=== PATIENT | female | born 1950 | race Caucasian/White ===

== ENCOUNTER 2018-03-14 09:37 | Observation (INO) ==
[2018-03-14] MEDS ORDERED: Sodium Chlor 0.9% Inj 500 ML IV.CONT ONE (10:45)
[2018-03-14] MEDS ORDERED: Chlorhexidine Gluconate 2% 1 Pack (2 Cloths) TOPICAL ONE (10:45)
[2018-03-14] MEDS ORDERED: Metoprolol Tartrate 25 MG Tablet PO ONE (10:45)
[2018-03-14] MEDS ORDERED: Vancomycin Inj 1,000 MG in Sodium Chlor 0.9% Inj 250 ML IV.SIG SCH (11:00)
[2018-03-14] MEDS ORDERED: Sod Chloride 0.9% Inj 1,000 ML IV.CONT SCH (11:00)
[2018-03-14] MEDS ORDERED: Ketamine Inj 50 MG/5 ML Syringe IV.PUSH ONE (12:24)
[2018-03-14] MEDS ORDERED: Propofol Inj 500 MG/50 ML Vial ONE (12:24)
[2018-03-14] MEDS ORDERED: Gelatin Size 100 Topical Foam ONE (12:25)
[2018-03-14] MEDS ORDERED: Thrombin Topical Soln 5,000 UNIT Vial TOPICAL ONE (12:25)
[2018-03-14] MEDS ORDERED: Neostigmine Inj 5 MG/5 ML Syringe IV.PUSH ONE (12:54)
[2018-03-14] MEDS ORDERED: Glycopyrrolate Inj 1 MG/5 ML Syringe IV.PUSH ONE (12:54)
[2018-03-14] MEDS ORDERED: Phenylephrine/NS 1000 MCG/10ML Syringe IV.PUSH ONE (12:54)
[2018-03-14] MEDS ORDERED: Lidocaine PF 1% Inj 5 ML Syringe OTHER ONE (12:54)
[2018-03-14] MEDS ORDERED: Bupivacaine/Epinephrine 0.5% Inj 50 ML Vial ONE (12:59)
[2018-03-14] MEDS ORDERED: Dextrose 50% in Water 50 ML Vial IV.PUSH PRN (15:13)
[2018-03-14] MEDS ORDERED: Aluminum/Magnesium/Simethacone Susp 30 ML UDC PO PRN (15:15)
[2018-03-14] MEDS ORDERED: Acetaminophen 325 MG Tablet PO PRN (15:15)
[2018-03-14] MEDS ORDERED: Magnesium Sulfate Inj 2 GM in Sodium Chlor 0.9% Inj 96 ML IV.SIG PRN (15:15)
[2018-03-14] MEDS ORDERED: Bisacodyl 10 MG Supp RECTAL PRN (15:15)
[2018-03-14] MEDS ORDERED: Calcium Gluconate Inj 1 GM in Sodium Chlor 0.9% Inj 100 ML IV.SIG PRN (15:15)
[2018-03-14] MEDS ORDERED: Morphine Inj 4 MG/ML Vial IV.PUSH PRN (15:15)
[2018-03-14] MEDS ORDERED: Menthol 5.8 MG Lozenge BUCCAL PRN (15:15)
[2018-03-14] MEDS ORDERED: Potassium Chlor 20 mEq Premix 20 MEQ/100 ML PIGGYBACK IV.SIG PRN (15:15)
--- NOTE | 2018-03-14 15:28 | P.OP ---
- Preoperative Diagnosis (1) Cervical disc disorder at C5-C6 level with myelopathy (2) Stenosis of cervical spine with myelopathy (3) Spondylolisthesis, cervical region Date of procedure: 03/14/18 Procedure: Anterior cervical C5-6 microdiscectomy with interbody fusion; anterior C5-6 cervical plate placement; C5-6 interbody cage placement; microsurgical technique Anesthesia: CAYLA Surgeon: Andre Hogue MD Roller Repairer: Cristina Faith Estimated blood loss (mL): 25 Operation and Findings: Following administration of general endotracheal anesthesia with the neck maintaining a neutral position in a Hampton collar, the patient received a gram of vancomycin and Decadron 10 mg intravenously. Sequential compression devices were placed in supine position on a Jerad table and all pressure points adequately padded. The head secured in a donut and anterior cervical region then shaved and prepped with Chloraprep and sterilely draped with Ioban along with the usual sterile draping. A transverse skin incision on the left side of the neck was then made after infiltrating the skin with 0.5% Marcaine with epinephrine solution extending down through the platysma. At the anterior border of the sternocleidomastoid further dissection was undertaken developing a plane between the carotid sheath laterally and the trachea esophagus medially. The prevertebral fascia was exposed and dissected out. The medial attachments of the longus colli muscles were detached and a self-retaining retractor used for exposure. The C5-6 disc space was localized with a marking the disc space and using lateral fluoroscopy. [place] distraction screws 14 mm length were placed one in the C5 and one in the C6 body interbody distraction and exposure. There was significant disc degeneration with disc height collapse and anterior osteophytes noted at the C5-6 level and the osteophytes were resected with a Leksell and annulus incised with a 15 blade and further dissection undertaken using microtechnique with microscope magnification. Diskectomy was undertaken with pituitaries and the endplates were also decorticated with curettes and drill bit. And more posteriorly there was disk osteophyte complex compressing the thecal sac along with a significant uncovertebral joint hypertrophy with foraminal stenosis which was decompressed along with removal of the posterior longitudinal ligaments at both levels. The foramen was decompressed bilaterally using a Kerrison's and palpation with a nerve hook, the exiting nerve roots were felt to be free. The area was then copiously irrigated. I then placed a Peek cage packed with local autograft bone at the C5-6 interspace under fluoroscopy guidance. [place] distraction pins were removed and the holes plugged with Gelfoam for hemostasis. In order to facilitate the fusion and provide stabilization, a Precision spine cervical Uniplate was then placed with 14 mm variable angle screw in the C5 body and 14 mm fixed angle screw in the C6 body. The plate screw locking mechanism was then engaged. AP and lateral fluoroscopy confirmed good placement of the construct and the retractor was then removed. Muscular bleeding points were cauterized with bipolar cautery and Gelfoam was then also used for hemostasis which was removed. The platysma was then approximated using 3-0 Vicryl interrupted stitches and 3-0 Vicryl subcuticular stitch also placed in an interrupted fashion, and final skin closure was with Mastisol and Steri-Strips. Sterile dressing was then applied. The patient was then extubated and taken to the recovery room. There are no intraoperative complications and all sponge and needle counts were correct at the end of procedure. Estimated blood loss was about 25 cc. The patient did undergo intraoperative neurologic monitoring which remained stable throughout the surgery.
[2018-03-14] MEDS ORDERED: fentaNYL Citrate Inj 100 MCG/2 ML Ampul ONE (15:40)
[2018-03-14 15:55] LABS: Hematocrit 28.5 % (35.0-46.0); Hemoglobin 9.5 gm/dL (11.6-15.3); Mean Corpuscular HGB Conc 33.4 % (32.0-36.0); Mean Corpuscular Volume 86.8 fL (80.0-100.0); Platelet Count 237 th/mm3 (150-450); Red Blood Count 3.29 mil/mm3 (4.00-5.30); Red Cell Distribution Width 13.1 % (11.6-17.2)
--- NOTE | 2018-03-14 15:58 | XR ---
EXAM DATE: 03/14/2018 12:00 AM EDT AGE/SEX: 68 years / Female INDICATIONS: C5-C6 Fusion. CLINICAL DATA: This is the patient's initial encounter. Patient reports that signs and symptoms have been present for 1 day and indicates a pain score of Nonresponsive. MEDICAL/SURGICAL HISTORY: None. None. COMPARISON: None. FINDINGS: 2 magnified C-arm spot views are lateral projections of the cervical spine. An anterior fusion plate with intervening bone graft device is seen involving C5-C6. Good alignment in this single plane noted . An endotracheal tube and esophageal temperature probe obscures the prevertebral soft tissues. The e sophageal temperature probe coils back in the pharynx with the tip projecting towards the nasopharynx . A metallic wire overlies the occiput. CONCLUSION: Limited images as detailed above. Electronically signed by: Mirza Desir MD 03/14/2018 3:57 PM EDT
[2018-03-14 16:13] LABS: Calcium 8.4 mg/dL (8.5-10.1); Carbon Dioxide 27.8 meq/L (21.0-32.0); Magnesium 1.9 mg/dL (1.5-2.5)
[2018-03-14] MEDS ORDERED: *morphine SULFATE 4 MG/ML PERIprocedure ONLY ONE (17:28)
[2018-03-14] MEDS: Insulin NovoLIN Regular Correctional Sugar Inj SQ SCH ×2 (17:58→20:45)
[2018-03-14] MEDS ORDERED: POTASSIUM GLUCONATE 550 MG PO SCH (21:00)
[2018-03-14 23:48] VITALS: O2SAT 98
[2018-03-15 07:55] LABS: Calcium 8.9 mg/dL (8.5-10.1); Carbon Dioxide 24.1 meq/L (21.0-32.0); Potassium 4.6 meq/L (3.5-5.1)
[2018-03-15] MEDS: Insulin NovoLIN Regular Correctional Sugar Inj SQ SCH (08:23)
[2018-03-15] MEDS ORDERED: Ferrous Sulfate 325 MG Tablet PO SCH (09:00)
[2018-03-15] MEDS ORDERED: Calcium/Vitamin D 250/125 MG Tablet PO SCH (09:00)
[2018-03-15] MEDS ORDERED: hydroCHLOROthiazide 25 MG Tablet PO SCH (09:00)
[2018-03-15] MEDS ORDERED: Multivit/Folic Acid/Minerals Chewable Tablets PO SCH (09:00)
[2018-03-15] MEDS ORDERED: [UNRECOGNIZED DRUG - OTHER] PO SCH (09:00)
[2018-03-15] MEDS ORDERED: Fenofibrate 145 MG Tablet PO SCH (09:00)
[2018-03-15] MEDS ORDERED: Magnesium Oxide 400 MG Tablet PO SCH (09:00)
[2018-03-15] MEDS ORDERED: Docusate Sodium Liq 100 MG/10 ML UDC PO SCH (09:00)
[2018-03-15 09:23] VITALS: BP 160/70; PULSE 92; RESP 20; TEMP 97.6
--- NOTE | 2018-03-15 10:01 | P.PNNS ---
Subjective Interval history: Pt doing well s/p C5/C6 ACF with cervical plate placement on 03/14/18. No radiculopathy in UEs. Paresthesias in hands stable and pt states from her previous degloving injury. She is ambulating to the bathroom independently and request discharge home. <CharlenecesiliaBhavin - Last Filed: 03/15/18 09:55> Physical Exam Vital signs: Vital Signs 03/14/18 10:29 03/14/18 15:29 03/14/18 15:35 Temperature 98.4 F 97.2 F L Pulse Rate 83 82 80 Respiratory Rate 20 15 12 Blood Pressure 142/67 H 174/71 H Pulse Oximetry 100 100 98 03/14/18 15:45 03/14/18 16:00 03/14/18 16:15 Temperature Pulse Rate 78 75 75 Respiratory Rate 10 L 13 13 Blood Pressure 151/69 H 142/62 H 141/67 H Pulse Oximetry 100 100 100 03/14/18 16:30 03/14/18 17:00 03/14/18 17:30 Temperature Pulse Rate 74 75 79 Respiratory Rate 14 16 11 L Blood Pressure 138/62 162/66 H 153/67 H Pulse Oximetry 100 100 100 03/14/18 17:41 03/14/18 18:00 03/14/18 20:00 Temperature 97.6 F 97.7 F Pulse Rate 79 89 Respiratory Rate 15 13 18 Blood Pressure 142/64 H 143/67 H Pulse Oximetry 100 100 03/14/18 23:47 03/15/18 03:38 03/15/18 08:05 Temperature 97.8 F 97.2 F L 97.6 F Pulse Rate 88 95 H 92 H Respiratory Rate 16 18 20 Blood Pressure 119/59 L 147/67 H 160/70 H Pulse Oximetry 98 98 Intake & Output 03/14/18 03/15/18 03/15/18 18:59 06:59 18:59 Intake Total 1850 / 1850 178 / 1780 Output Total 25 / 25 Balance 1825 / 1825 178 / 1780 Weight 63.9 kg 63 kg Intake: IV 1250 / 1250 1300 / 1300 LR 1000 mL Inj 1,000 ML @ 30 1000 / 1000 mls/hr IV.CONT .Q24H ONE Rx#: [id number] NS + KCl 20 mEq Inj 1,000 ML @ 1000 / 1000 0 mls/hr IV.CONT .STK-MED ONE Rx#:[id number] KCl 20 mEq Premix Inj 20 meq In 100 / 100 100 ml @ 50 mls/hr IV.SIG UNSCH PRN Rx#:[id number] Vancomycin Inj 1,000 MG In NS 250 / 250 Inj 250 ML @ 250 mls/hr IV.SIG SENIOR ME[employer] DESIGN ENGINEER DEVEN Rx#:[id number] Ancef Inj 1,000 MG In NS Inj 200 / 200 100 ML @ 200 mls/hr IV.SIG Q8H DEVEN Rx#:[id number] Oral 480 / 480 Anesthesia Amount 600 / 600 Output: Estimated Blood Loss 25 / 25 Other: # Voids 1 Date of Last Bowel Movement 03/13/18 03/14/18 Weight On Admission 58.8 kg - Constitutional no acute distress, cooperative - Routine HEENT Exam Head: Present: atraumatic Eye: Present: PERRL. Absent: scleral injection ENT: Present: oropharynx clear - Routine Neck Exam Present: trachea midline Comments: Anterior cervical incision clean and dry. New bandage placed. - Routine Respiratory Exam Present: CTA bilaterally. Absent: respiratory distress, rhonchi, wheezes - Routine Cardiovascular Exam Present: RRR, S1, S2. Absent: murmur - Routine Abdominal Exam Present: soft, normoactive bowel sounds. Absent: distended - Routine Skin Exam Absent: cyanosis, erythema Comments: New bandage placed. - Routine Neurological Exam Present: alert, moving all extremities, normal speech. Absent: motor deficit ( good strength in UEs.) - Routine Psychiatric Exam Present: normal affect, cooperative. Absent: anxious, agitated <Bhavin Monae - Last Filed: 03/15/18 09:55> Vital signs: Vital Signs 03/14/18 10:29 03/14/18 15:29 03/14/18 15:35 Temperature 98.4 F 97.2 F L Pulse Rate 83 82 80 Respiratory Rate 20 15 12 Blood Pressure 142/67 H 174/71 H Pulse Oximetry 100 100 98 03/14/18 15:45 03/14/18 16:00 03/14/18 16:15 Temperature Pulse Rate 78 75 75 Respiratory Rate 10 L 13 13 Blood Pressure 151/69 H 142/62 H 141/67 H Pulse Oximetry 100 100 100 03/14/18 16:30 03/14/18 17:00 03/14/18 17:30 Temperature Pulse Rate 74 75 79 Respiratory Rate 14 16 11 L Blood Pressure 138/62 162/66 H 153/67 H Pulse Oximetry 100 100 100 03/14/18 17:41 03/14/18 18:00 03/14/18 20:00 Temperature 97.6 F 97.7 F Pulse Rate 79 89 Respiratory Rate 15 13 18 Blood Pressure 142/64 H 143/67 H Pulse Oximetry 100 100 03/14/18 23:47 03/15/18 03:38 03/15/18 08:05 Temperature 97.8 F 97.2 F L 97.6 F Pulse Rate 88 95 H 92 H Respiratory Rate 16 18 20 Blood Pressure 119/59 L 147/67 H 160/70 H Pulse Oximetry 98 98 Intake & Output 03/14/18 03/15/18 03/15/18 18:59 06:59 18:59 Intake Total 1850 / 1850 1780 / 1780 Output Total 25 / 25 Balance 1825 / 1825 1780 / 1780 Weight 63.9 kg 63 kg Intake: IV 1250 / 1250 1300 / 1300 LR 1000 mL Inj 1,000 ML @ 30 1000 / 1000 mls/hr IV.CONT .Q24H ONE Rx#: [id number] NS + KCl 20 mEq Inj 1,000 ML @ 1000 / 1000 0 mls/hr IV.CONT .STK-MED ONE Rx#:[id number] KCl 20 mEq Premix Inj 20 meq In 100 / 100 100 ml @ 50 mls/hr IV.SIG UNSCH PRN Rx#:[id number] Vancomycin Inj 1,000 MG In NS 250 / 250 Inj 250 ML @ 250 mls/hr IV.SIG S[employer] DESIGN ENGINEER DEVEN Rx#:[id number] Ancef Inj 1,000 MG In NS Inj 200 / 200 100 ML @ 200 mls/hr IV.SIG Q8H DEVEN Rx#:[id number] Oral 480 / 480 Anesthesia Amount 600 / 600 Output: Estimated Blood Loss 25 / 25 Other: # Voids 1 Date of Last Bowel Movement 03/13/18 03/14/18 Weight On Admission 58.8 kg <Andre Hogue - Last Filed: 03/15/18 10:18> Assessment and Plan - Assessment (1) Stenosis of cervical spine with myelopathy Code(s): M47.12 - Other spondylosis with myelopathy, cervical region Status: Chronic (2) Cervical disc disorder at C5-C6 level with myelopathy Code(s): M50.022 - Cervical disc disorder at C5-C6 level with myelopathy Status: Chronic (3) Spondylolisthesis, cervical region Code(s): M43.12 - Spondylolisthesis, cervical region Status: Chronic - Plan 68 y/o FM s/p C5/C6 anterior cervical fusion with cervical plate placement. P: Pt doing well and requests discharge home Discussed restrictions with pt. Follow up as scheduled with Dr. Hogue in 6 weeks with AP and lateral cervical x-rays prior to appt as scheduled on preop instruction sheet. <Bhavin Monae - Last Filed: 03/15/18 09:55> - Attending Attestation The exam, history, and the medical decision-making described in the above note were completed with the assistance of the mid-level provider. I reviewed and agree with the findings presented. I attest that I had a [id number] encounter with the patient on the same day, and personally performed and documented my assessment and findings in the medical record. <Andre Hogue - Last Filed: 03/15/18 10:18>
== END 2018-03-15 10:30 | disposition home or self-care (01) ==
LOC: HSDI 09:37 → HSDC 09:37 → N06 18:12
PROVIDERS: ADMIT Neurological Surgery; ATTEND Neurological Surgery